=== PATIENT | male | born 1960 | race Caucasian/White ===

== ENCOUNTER 2025-06-22 10:36 | Day surgery (SDC) | payer OTHER ==
[~2025-06-22] VITALS: Ht 180.3 cm; Wt 90.1 kg
[~2025-06-22 10:36] MED LIST: BUPR-766 PO; FINA5TAB2 PO; LIDOCAINE 2% 100 MG/5 ML SDV (FOR ANES.) As Ordered ONE; THERTAB52 PO; TRAZ-252 PO
[2025-06-22 13:08] VITALS: TEMP 98
[2025-06-22 13:25] VITALS: BP 125/85; O2SAT 96
== END 2025-06-22 13:36 | disposition home or self-care (01) ==
LOC: M OPP 10:36
PROVIDERS: ATTEND Internal Medicine Gastroenterology
DX: Z12.11 Encounter for screening for malignant neoplasm of colon (principal); K63.5 Polyp of colon; K64.0 First degree hemorrhoids; K22.70 Barrett's esophagus without dysplasia; B96.81 Helicobacter pylori [H. pylori] as the cause of diseases classified elsewhere; K29.50 Unspecified chronic gastritis without bleeding; R12 Heartburn; Z88.1 Allergy status to other antibiotic agents; Z79.899 Other long term (current) drug therapy